=== PATIENT | female | born 1975 | race Native Hawaiian/Other Pacific Islander ===

== ENCOUNTER 2018-04-24 14:08 | Emergency (ER) | payer OTHER ==
[~2018-04-24] VITALS: Ht 154.9 cm; Wt 54.4 kg
[2018-04-24 14:15] VITALS: TEMP 98.1
[2018-04-24 15:59] VITALS: BP 138/79
== END 2018-04-24 16:00 | disposition home or self-care (01) ==
LOC: ED 14:08
DX: S30.0XXA Contusion of lower back and pelvis, initial encounter (principal); W19.XXXA Unspecified fall, initial encounter; Y93.89 Activity, other specified; Y92.89 Other specified places as the place of occurrence of the external cause
CPT/HCPCS: 99282